=== PATIENT | female | born 1965 | race Caucasian/White ===

== ENCOUNTER 2023-04-11 14:20 | Emergency (ER) | payer BC ==
[~2023-04-11] VITALS: Ht 160 cm; Wt 74.1 kg
[2023-04-11 14:38] VITALS: BP 142/73
[2023-04-11] MEDS ORDERED: ketorolac tromethamine 15mg/ml inj. IM ONE (16:05)
== END 2023-04-11 17:12 | disposition home or self-care (01) ==
LOC: ER 14:21
DX: S90.121A Contusion of right lesser toe(s) without damage to nail, initial encounter (principal); Z91.030 Bee allergy status; Z88.5 Allergy status to narcotic agent; W18.39XA Other fall on same level, initial encounter; Y93.89 Activity, other specified; Y92.89 Other specified places as the place of occurrence of the external cause; Y99.8 Other external cause status
CPT/HCPCS: 73630; 96372; 99283; J1885